=== PATIENT | female | born 1985 | race Two or more races ===

== ENCOUNTER 2016-12-26 15:38 | Observation (INO) | payer OTHER ==
[~2016-12-26] VITALS: Ht 165.1 cm; Wt 72.6 kg
[2016-12-26 16:27] LABS: BASOPHILS % (AUTO) 0.4 % (0.0-2.0); EOSINOPHILS # (AUTO) 0.1 K/uL (0-0.4); EOSINOPHILS % (AUTO) 1.2 % (0.0-4.0); HEMATOCRIT 35.2 % (36-48); HEMOGLOBIN 11.4 g/dL (12.0-16.0); LYMPHOCYTES # (AUTO) 1.9 K/uL (2.5-16.5); LYMPHOCYTES % (AUTO) 16.8 % (20.5-51.1); MEAN CORPUSCULAR HEMOGLOBIN 28 pg (27-31); MEAN CORPUSCULAR HGB CONC 32 g/dL (33-37); MEAN CORPUSCULAR VOLUME 87 fL (80-94); MONOCYTES # (AUTO) 0.9 K/uL (0.8-1.0); NEUTROPHILS # (AUTO) 8.6 K/uL (1.8-7.7); NEUTROPHILS % (AUTO) 73.6 % (42.2-75.2); PLATELET COUNT (AUTO) 239 K/uL (140-450); RED BLOOD CELL COUNT(AUTO) 4.07 MIL/uL (4.20-5.40); RED CELL DISTRIBUTION WIDTH 12.8 % (11.6-13.7); WHITE BLOOD COUNT (AUTO) 11.5 K/uL (4.8-10.8)
[2016-12-26 16:35] VITALS: BP 114/71
[2016-12-26 16:45] LABS: ANION GAP 13.6 (8-16); CARBON DIOXIDE 24.3 mmol/L (21-32); CREATININE 0.4 mg/dL (0.6-1.3); POTASSIUM 3.9 mmol/L (3.5-5.1)
[2016-12-26] MEDS: TERBUTALINE 1 MG/ML VIAL SUBQ SCH ×2 (17:28→18:21)
[2016-12-26] MEDS ORDERED: TERBUTALINE 1 MG/ML VIAL SUBQ ONE ×2 (17:30→18:27)
== END 2016-12-26 18:55 | disposition home or self-care (01) ==
LOC: MLD 15:38
PROVIDERS: ADMIT Obstetrics & Gynecology; ATTEND Obstetrics & Gynecology
DX: O36.8190 Decreased fetal movements, unspecified trimester, not applicable or unspecified (principal); O26.893 Other specified pregnancy related conditions, third trimester; R42 Dizziness and giddiness; R51 Headache; R11.0 Nausea; R06.02 Shortness of breath; Z3A.00 Weeks of gestation of pregnancy not specified
CPT/HCPCS: 36415; 76819; 80048; 85025; G0378; J3105; Q0092; 59025; 81000; 96372

== ENCOUNTER 2017-01-09 08:29 | Observation (INO) | payer OTHER ==
[~2017-01-09] VITALS: Ht 165.1 cm; Wt 68.0 kg
[2017-01-09] MEDS: LACTATED RINGERS 1,000 ML IV SCH (00:50)
--- NOTE | 2017-01-09 09:29 | NUR ---
PATIENT HAS BEEN SCREENED AND CATEGORIZED LOW NUTRITION RISK. PATIENT WILL BE SEEN WITHIN 7 DAYS OF ADMISSION. 01/15/[address]
[2017-01-09 11:04] VITALS: BP 103/56
[2017-01-09] MEDS ORDERED: NIFEdipine 10 MG CAPLF PO SCH ×2 (16:40→20:00)
[2017-01-09] MEDS ORDERED: AMPICILLIN 2,000 MG in NACL 0.9% 100 ML IV SCH (16:40)
[2017-01-09] MEDS ORDERED: BETAMETH ACET/BETAMETH NA PH 30 MG/5 ML VIAL IM ONE ×3 (17:44→21:00)
[2017-01-09] MEDS ORDERED: NIFEdipine 10 MG CAPLF ONE ×5 (17:44→22:36)
[2017-01-09] MEDS ORDERED: AMPICILLIN 2,000 MG VIAL ONE (17:44)
[2017-01-09 19:17] LABS: HEMATOCRIT 34.8 % (36-48); HEMOGLOBIN 11.3 g/dL (12.0-16.0); MEAN CORPUSCULAR HEMOGLOBIN 28 pg (27-31); MEAN CORPUSCULAR HGB CONC 32 g/dL (33-37); MEAN CORPUSCULAR VOLUME 86 fL (80-94); PLATELET COUNT (AUTO) 221 K/uL (140-450); RED BLOOD CELL COUNT(AUTO) 4.04 MIL/uL (4.20-5.40); RED CELL DISTRIBUTION WIDTH 13.2 % (11.6-13.7); WHITE BLOOD COUNT (AUTO) 11.4 K/uL (4.8-10.8)
[2017-01-09 19:36] LABS: ANION GAP 14.2 (8-16); CARBON DIOXIDE 25.2 mmol/L (21-32); CREATININE 0.6 mg/dL (0.6-1.3); POTASSIUM 3.4 mmol/L (3.5-5.1)
[2017-01-09 19:41] LABS: LYMPHOCYTES % (MANUAL) 11 % (20-46)
[2017-01-09 19:42] LABS: MONOCYTES % (MANUAL) 4 % (5-12); PROMYELOCYTES % 3 % (0-0)
[2017-01-09] MEDS: AMPICILLIN 1,000 MG in NACL 0.9% 50 ML IV SCH (22:22)
[2017-01-09] MEDS ORDERED: AMPICILLIN 1,000 MG VIAL ONE (22:24)
[2017-01-10] MEDS ORDERED: AMPICILLIN 1,000 MG VIAL ONE ×4 (02:10→14:18)
[2017-01-10] MEDS ORDERED: NIFEdipine 10 MG CAPLF ONE ×4 (02:11→14:18)
[2017-01-10] MEDS: AMPICILLIN 1,000 MG in NACL 0.9% 50 ML IV SCH ×2 (02:24→06:21)
[2017-01-10] MEDS ORDERED: BETAMETH ACET/BETAMETH NA PH 30 MG/5 ML VIAL IM ONE (05:45)
[2017-01-10] MEDS: LACTATED RINGERS 1,000 ML IV SCH (10:21)
== END 2017-01-10 15:45 | disposition home or self-care (01) ==
LOC: MLD 08:29
PROVIDERS: ADMIT Obstetrics & Gynecology; ATTEND Obstetrics & Gynecology
DX: O46.93 Antepartum hemorrhage, unspecified, third trimester (principal); O60.03 Preterm labor without delivery, third trimester; Z3A.33 33 weeks gestation of pregnancy
CPT/HCPCS: 76805; 80048; 85025; 96361; 96365; 96366; 96372; G0378; J0290; J0702; J7120; Q0092

== ENCOUNTER 2017-02-01 07:30 | Inpatient (IN) | payer OTHER ==
[~2017-02-01] VITALS: Ht 167.6 cm; Wt 72.6 kg
[2017-02-01] MEDS ORDERED: TERBUTALINE 1 MG/ML VIAL SUBQ SCH (07:55)
[2017-02-01] MEDS ORDERED: MEASLES, MUMPS, AND RUBELLA 1 VIAL SQVAC PRN (08:00)
[2017-02-01] MEDS ORDERED: TRIMETHOBENZAMIDE 200 MG/2 ML SYR IM PRN (08:00)
[2017-02-01] MEDS ORDERED: oxyCODONE/APAP 5/325 MG 1 TAB TAB PO PRN (08:00)
[2017-02-01] MEDS ORDERED: METHYLERGONOVINE 0.2 MG/ML AMP IM PRN (08:00)
[2017-02-01] MEDS ORDERED: TEMAZEPAM 15 MG CAP PO PRN (08:00)
[2017-02-01] MEDS ORDERED: HYDROcodone/APAP 5/325 MG 1 TAB TAB PO PRN (08:00)
[2017-02-01 08:16] LABS: HEMATOCRIT 36.1 % (36-48); HEMOGLOBIN 11.6 g/dL (12.0-16.0); MEAN CORPUSCULAR HEMOGLOBIN 27 pg (27-31); MEAN CORPUSCULAR HGB CONC 32 g/dL (33-37); MEAN CORPUSCULAR VOLUME 84 fL (80-94); PLATELET COUNT (AUTO) 231 K/uL (140-450); WHITE BLOOD COUNT (AUTO) 10.2 K/uL (4.8-10.8)
[2017-02-01] MEDS ORDERED: TERBUTALINE 1 MG/ML VIAL SUBQ ONE (08:41)
--- NOTE | 2017-02-01 09:04 | NUR ---
PATIENT HAS BEEN SCREENED AND CATEGORIZED LOW NUTRITION RISK. PATIENT WILL BE SEEN WITHIN 7 DAYS OF ADMISSION. 02/07/[address]
[2017-02-01] MEDS ORDERED: OXYTOCIN 10 UNITS/ML VIAL ONE (09:17)
[2017-02-01 09:21] LABS: LYMPHOCYTES % (MANUAL) 21 % (20-46); MONOCYTES % (MANUAL) 5 % (5-12)
[2017-02-01] MEDS ORDERED: MORPHINE PRES FREE 10 MG/10 ML AMP IV ONE (09:22)
[2017-02-01] MEDS ORDERED: MIDAZOLAM 2 MG/2 ML VIAL ONE (09:22)
[2017-02-01] MEDS ORDERED: OXYTOCIN 20 UNITS in LACTATED RINGERS 1,000 ML IV SCH (09:39)
[2017-02-01] MEDS ORDERED: ONDANSETRON 4 MG/2 ML VIAL IVP PRN ×2 (09:40)
[2017-02-01] MEDS ORDERED: NALOXONE 0.4 MG/ML VIAL IVP PRN ×3 (09:40)
[2017-02-01] MEDS ORDERED: diphenhydrAMINE 50 MG/ML VIAL IVP PRN ×2 (09:40)
[2017-02-01] MEDS ORDERED: HYDROmorphone 1 MG/ML AMP IVP PRN (09:40)
[2017-02-01] MEDS ORDERED: NALBUPHINE 10 MG/ML AMP IVP PRN (09:40)
[2017-02-01] MEDS ORDERED: MEPERIDINE 25 MG/ML SYR IVP PRN (09:40)
[2017-02-01 09:59] LABS: BILIRUBIN,URINE NEGATIVE (NEGATIVE); BLOOD, URINE NEGATIVE (NEGATIVE); COLOR,URINE YELLOW (YELLOW); LEUKOCYTE ESTERASE ,URINE NEGATIVE (NEGATIVE); NITRITE, URINE NEGATIVE (NEGATIVE); UGLUCOSE NEGATIVE (NEGATIVE)
[2017-02-01] MEDS ORDERED: diphenhydrAMINE 50 MG/ML VIAL ONE (10:08)
[2017-02-01] MEDS ORDERED: OXYTOCIN 20 UNITS/LR PREMIX 1,000 ML IV ONE ×2 (10:08→23:51)
[2017-02-01] MEDS ORDERED: ONDANSETRON 4 MG/2 ML VIAL ONE (10:10)
[2017-02-01 10:24] LABS: APPEARANCE,URINE HAZY (CLEAR)
[2017-02-01 10:26] LABS: RBC,URINE NONE SEEN /HPF (0-5); WBC,URINE 0-5 (RARE) /HPF (0-5)
[2017-02-01] MEDS ORDERED: KETOROLAC 30 MG/ML VIAL IM/IVP SCH (12:00)
--- NOTE | 2017-02-01 14:15 | NUR ---
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
[2017-02-01] MEDS: OXYTOCIN 20 UNITS in LACTATED RINGERS 1,000 ML IV SCH ×2 (16:56→23:50)
--- NOTE | 2017-02-01 17:30 | NUR ---
TOLERATED INCENTIVE SPIROMETRY THERAPY WELL WITHOUT ADVERSE REACTIONS NOTED ENCOURAGED PATIENT WITH ACKNOWLEDGEMENT TO USE INCENTIVE SPIROMETRY EVERY 1-2 HOURS WHILE AWAKE
[2017-02-02] MEDS: IBUPROFEN 800 MG TAB PO PRN ×2 (05:27→21:26)
[2017-02-02 05:33] LABS: BASOPHILS % (AUTO) 0.2 % (0.0-2.0); EOSINOPHILS # (AUTO) 0.1 K/uL (0-0.4); EOSINOPHILS % (AUTO) 0.9 % (0.0-4.0); HEMATOCRIT 33.8 % (36-48); LYMPHOCYTES # (AUTO) 1.7 K/uL (2.5-16.5); LYMPHOCYTES % (AUTO) 12.5 % (20.5-51.1); MEAN CORPUSCULAR HEMOGLOBIN 27 pg (27-31); MEAN CORPUSCULAR HGB CONC 32 g/dL (33-37); MEAN CORPUSCULAR VOLUME 83 fL (80-94); MONOCYTES # (AUTO) 0.9 K/uL (0.8-1.0); MONOCYTES % (AUTO) 6.7 % (1.7-9.3); NEUTROPHILS # (AUTO) 10.7 K/uL (1.8-7.7); NEUTROPHILS % (AUTO) 79.7 % (42.2-75.2); PLATELET COUNT (AUTO) 205 K/uL (140-450); RED BLOOD CELL COUNT(AUTO) 4.06 MIL/uL (4.20-5.40); RED CELL DISTRIBUTION WIDTH 13.6 % (11.6-13.7); WHITE BLOOD COUNT (AUTO) 13.4 K/uL (4.8-10.8)
[2017-02-02] MEDS: SIMETHICONE 80 MG TAB.CHEW PO PRN ×3 (09:57→21:26)
[2017-02-02 16:51] LABS: RAPID PLASMA REAGIN NON-REACTIVE (Non Reactiv)
[2017-02-02] MEDS: DOCUSATE SOD/SENNA 50/8.6 MG 1 TAB PO SCH (21:26)
[2017-02-03] MEDS: LACTATED RINGERS 1,000 ML IV SCH ×2 (02:27→02:41)
[2017-02-03] MEDS: SIMETHICONE 80 MG TAB.CHEW PO PRN ×4 (04:28→21:16)
[2017-02-03] MEDS: IBUPROFEN 800 MG TAB PO PRN ×2 (08:48→21:15)
[2017-02-03] MEDS: DOCUSATE SOD/SENNA 50/8.6 MG 1 TAB PO SCH (21:16)
[2017-02-04] MEDS: IBUPROFEN 800 MG TAB PO PRN (09:29)
[2017-02-04] MEDS ORDERED: IBUP-2217 PO (10:29)
== END 2017-02-04 12:30 | disposition home or self-care (01) | DRG 766 ==
LOC: MLD 07:30 → MFCC 09:20
PROVIDERS: ADMIT Obstetrics & Gynecology; ATTEND Obstetrics & Gynecology
PROC: 10D00Z1 Extraction of Products of Conception, Low, Open Approach (ICD-10-PCS; principal; 2017-02-01 09:00)
DX: O34.211 Maternal care for low transverse scar from previous cesarean delivery (principal); Z28.21 Immunization not carried out because of patient refusal; Z37.0 Single live birth; Z3A.39 39 weeks gestation of pregnancy
CPT/HCPCS: 36415; 81001; 85025; 86592; 86886; 86900; 86901; J0690; J1200; J2250; J2270; J2405; J2590; J3105; J7060; J7120